=== PATIENT | male | born 1995 | race Caucasian/White ===

== ENCOUNTER → 2023-12-27 06:59 | Outpatient (CLI) | payer OTHER, SELFPAY ==
--- NOTE | 2023-12-27 07:00 | DI.US.S_ITS ---
PROCEDURE: US SCROTUM INDICATIONS: Left testicular pain x2 weeks TECHNIQUE: Real-time scanning was performed of the scrotum and testicles, with image documentation. Color and pulse Doppler interrogation was performed of both testicles. COMPARISON: None. FINDINGS: Right: Testicle is normal in size at 6 x 3.7 x 2.7 cm, and homogenous in echotexture. Epididymis is normal in overall size and morphology. No hydrocele or varicoceles. Overlying scrotal skin is normal in thickness. Left: Testicle is normal in size at 5.8 x 3.9 x 2.5 cm, and homogeneous in echotexture. Epididymis body and tail is somewhat heterogeneous compared to the right. No increased vascularity is appreciated. No hydrocele or varicoceles. Overlying scrotal skin is normal in thickness. Doppler: Color and pulse Doppler demonstrate normal and symmetric arterial flow in both testicles. No inguinal hernia. IMPRESSION: 1. Left epididymis body and tail are somewhat heterogeneous compared to the right. However, no hyperemia is demonstrated. Indeterminate for sequelae of left epididymitis. 2. No testicular mass. No testicular torsion. 3. No hydrocele or varicocele. 4. No inguinal hernia. Dictated by: Darrell Capellan M.D. on 12/27/2023 at 9:18 Approved by: Darrell Capellan M.D. on 12/27/2023 at 9:21
[2023-12-27 08:34] LABS: Appearance Urine UA CLEAR; Bilirubin Urine UA NEGATIVE (NEGATIVE); Color Urine UA YELLOW; Glucose Urine UA NEGATIVE (Negative); Ketones Urine UA NEGATIVE (NEGATIVE); Leukocyte Esterase Urine UA NEGATIVE (NEGATIVE); Nitrite Urine UA NEGATIVE (Negative); Occult Blood Urine UA NEGATIVE (Negative); Protein Urine UA NEGATIVE (Negative); Specific Gravity Urine UA <=1.005 (1.000-1.035); Urobilinogen Urine UA 0.2 E.U./dL (0.2); pH Urine UA 6.5 (4.5-8.0)
[2023-12-27 08:41] LABS: Bacteria Urine None Seen; Culture Indicated Urine Cult Not Indicated; RBC Urine None Seen (0-5/HPF); Squamous Epithelial Cell Urine None Seen (0-5/HPF); Urine Volume 10mL (spun); WBC Urine None Seen (0-5/HPF)
[2023-12-27 09:59] LABS: Urine N gonorrhoeae NOT DETECTED
[2023-12-27 14:57] LABS: Urine Chlamydia NOT DETECTED
== END ==
PROVIDERS: PCP Family Medicine; Referring Provider Family Medicine; Visit Provider Family Medicine
DX: N50.812 Left testicular pain (principal); Z87.898 Personal history of other specified conditions
CPT/HCPCS: 76870; 81001; 87491; 87591